=== PATIENT | female | born 1960 | race Caucasian/White ===

== ENCOUNTER → 2016-12-28 | Outpatient (CLI) | payer BC ==
[~2016-12-28] MED LIST: ASPCH81X PO; CHOL20005 PO; CYAN100020 PO; GLC500 PO; IRBE1TAB48 PO; LEVO50TA PO; PANT1TAB48 PO
[2016-12-28 10:52] LABS: RATIO 21.6 mcg/mg (0-30.0)
[2016-12-28 11:08] LABS: ESTIMATED AVERAGE GLUCOSE 134 mg/dl; HA1C FLAG Normal (Normal)
== END | disposition home or self-care (01) ==
LOC: C.LAB1850 09:32
PROVIDERS: ATTEND Family Medicine
DX: E78.5 Hyperlipidemia, unspecified (principal); E55.9 Vitamin D deficiency, unspecified; I10 Essential (primary) hypertension; E11.9 Type 2 diabetes mellitus without complications; E03.9 Hypothyroidism, unspecified

== ENCOUNTER → 2018-03-13 | Outpatient (CLI) | payer OTHER ==
[~2018-03-13] MED LIST changes: +PANT1TAB3 PO; -PANT1TAB48 PO
--- NOTE | 2018-03-13 13:38 | DIAGNOSTIC IMAGING REPORT ---
LEFT KNEE 2 VIEWS HISTORY: Left knee pain , SWELLING LEFT KNEE COMPARISON: None. FINDINGS: There is no fracture or dislocation. Soft tissues are unremarkable. No radiopaque foreign bodies. Mild cartilage space narrowing within the medial compartment of the knee consistent with degenerative change. IMPRESSION: No fractures. Mild osteoarthritis within the medial compartment. Electronically signed by: Ollie Pickett M.D. 03/13/2018 1:37 PM Dictated Date/Time: 03/13/2018 1:34 PM
== END | disposition home or self-care (01) ==
LOC: C.RAD1850 13:19
PROVIDERS: ATTEND Nurse Practitioner
DX: M25.562 Pain in left knee (principal); M25.462 Effusion, left knee

== ENCOUNTER 2022-05-01 06:57 | Inpatient (IN) ==
[~2022-05-01 06:57] MED LIST changes: -ASPCH81X PO; -CHOL20005 PO; -CYAN100020 PO; -GLC500 PO; -IRBE1TAB48 PO; -LEVO50TA PO; +LIDOCAINE 1% LOCAL 20 ML VIAL ONE; -PANT1TAB3 PO
--- NOTE | 2022-05-01 08:16 | History & Physical Bridge Note ---
Date of Service May 01, 2022 History & Physical Bridge Note I have examined the patient, reviewed the History & Physical and in the interval since the performance of the History & Physical I have noted the following changes of clinical significance: no changes noted
--- NOTE | 2022-05-01 08:16 | Pre Anesthesia Assessment ---
Date of Service May 01, 2022 Pre Sedation Assessment Vital Signs Temp Pulse Resp BP Pulse Ox 05/01/22 07:17 98.1 F 94 H 16 159/97 H 96 Cardiovascular RRR, no murmur, no edema Respiratory normal respiratory effort, lungs clear to auscultation Pre-Sedation Airway Assessment Smoking Status: Never smoker Hx Sleep Apnea: No Hx Difficult Intubation: No Short, Thick Neck: No Thyromental Distance: > or= 3.5 Finger Breadths Oral Cavity: + WNL Mallampati Class: III ASA: ASA3 NPO Status Date of Last Intake of Fluids: 04/30/22 Time of Last Intake of Fluids: 18:30 Date of Last Intake of Solid Food: 04/30/22 Time of Last Intake of Solid Foods: 18:30 Procedure Planning Contraindications for Sedation: none Current Medications Reviewed: Yes Notes The planned sedation has been discussed with the patient. Informed Consent was obtained. I have identified the patient, determined the appropriateness of sedation and have assessed the patient immediately prior to the procedure. All medicine(s) and interventions are by my order.
[2022-05-01] MEDS ORDERED: fentaNYL citrate 100 MCG/2 ML VIAL ONE (08:23)
[2022-05-01] MEDS ORDERED: NITROGLYCERIN/D5W 100MCG/ML 20ML SYR ONE (08:23)
[2022-05-01] MEDS ORDERED: HEPARIN (PORCINE) 1000 UNIT/ML 10 ML (CATH LAB USE ONLY) ONE (08:23)
[2022-05-01] MEDS ORDERED: MIDAZOLAM HCL 1 MG/ML 2ML VIAL ONE ×2 (08:23→09:33)
[2022-05-01] MEDS ORDERED: niCARdipine HCL INJ 2.5 MG/ML 10 ML AMP ONE (08:23)
[2022-05-01] MEDS ORDERED: FUROSEMIDE 40 MG/4 ML VIAL IV ONE ×2 (09:19→09:34)
[2022-05-01] MEDS ORDERED: NITROGLYCERIN 2% OINTMENT 30GM TUBE ONE ×2 (09:22→09:24)
[2022-05-01] MEDS ORDERED: hydrALAZINE HCL 20 MG/ML VIAL ONE (09:26)
--- NOTE | 2022-05-01 09:31 | Post Anesthesia Assessment ---
Date of Service May 01, 2022 Post Sedation Assessment Vital Signs Temp Pulse Resp BP Pulse Ox 05/01/22 09:15 132 H 30 H 188/131 H 87 L 05/01/22 07:17 98.1 F 94 H 16 159/97 H 96 Recovery Score Activity: Moves 4 extremities Respiration: Deep Breath/Cough Circulation: +/-20% PreAnes Value Consciousness: Fully Awake Oxygen Saturation: <90% w/ supp O2 Post Anesthesia Score: 9 Discharge Sedation Level of Care: Fast Track Phase II Post Sedation Plan On clinical assessment, the patient appears to have tolerated the sedation without complications. Patient is recovering as anticipated. Patient will continue to be monitored by nursing and may be discharged when sedation discharge criteria are met per below protocol. Upon Completions of procedure up to 15 minutes continue every 5 minute vital signs and the P.A.R. score; then discharge to a Phase I or Fast Track to Phase II per the following guidelines: * Discharge Patient to appropriate Phase II area if PAR is 8 or greater or return to pre- procedure baseline. The post - procedure orders will be as directed. * If PAR score is less than 8 or not return to pre-procedure baseline then patient will follow Phase I monitoring till PAR is reached for Phase II. The Phase I may be done in procedure room or may call to secure a Phase I area. * If naloxone or flumazenil are used for reversal, hold in Phase I for continued monitoring from when last reversal dose was given for a minimum of 60 minutes or longer pending the nurse and/or physician discretion of patient condition before discharge to Phase II. Please call the Sedation Physician to re-evaluate and complete post-note for discharge to Phase II area. Do NOT discharge from procedure sedation or Phase 1 until post- sedation evaluation note is complete by procedure /sedation MD Sedation Discharge Instructions to be given to the patient at discharge to home.
[2022-05-01] MEDS ORDERED: NITROGLYCERIN/D5W 100 MCG/ML BTL ONE (09:36)
[2022-05-01] MEDS ORDERED: RAPID SEQUENCE INDUCTION BAG ONE (09:38)
[2022-05-01] MEDS ORDERED: PROPOFOL IV EMULSION 10 MG/ML 100 ML VIAL (CATH LAB USE ONLY) ONE (09:46)
--- NOTE | 2022-05-01 10:23 | Cardiac Catheterization ---
[facility] Data: Cat And Dog Bather Cardiac Status Clinical evaluation leading to the procedure CAD Presenation: Sx unlikely to be ischemic Diagnostic Physicians Name: Ky Bermudez MD Closure Device Recommendations: Medical Therapy and/or Counseling and Valve Replacement Cardiac Cath Procedure Full Procedure Date May 01, 2022 Pre-Procedure Diagnosis Pre-Procedure Diagnosis: Valvular Disease AUC Score AUC Score: 7 Post-Procedure Diagnosis Post-Procedure Diagnosis: Mild CAD and Elevated Intracardiac Pressures Procedure(s) Performed Procedure(s) Performed: Coronary Angiography, Left Heart Cath, Right Heart Cath and Ultrasound Guided Vascular Access Business Info Consultant Ky Bermudez MD Plate Embosser(s) Showers Estimated Blood Loss Estimated Blood Loss: 15 Medication(s) Medication(s): Fentanyl, Heparin, Lidocaine 1%, Nicardipine, Nitroglycerin and Versed Summary of Findings Indication: Severe aortic stenosis Access: 6Fr right radial artery under ultrasound guidance, 6Fr right antecubital vein Catheters: 4Fr JR4, JL3.5, 6FR swan Findings: LM - Short, large caliber, no significant disease LAD - large caliber, no significant disease, wraps around apex. Circumflex - dominant, large caliber, no significant disease RCA - non-dominant, no significant disease RA 7 RV 81/10 PA 83/34 (56) PAWP 25 PaSat 60% AoSat 94% [place] CO/CI 5.5/2.9 Thermo CO/CI 5.8/3.1 TPG 21 PVR 3.7 BARNETT Arterial Closure: TR Band - On transfer to record label intern holding area patient became increasingly short of breath, hypoxic and hypertensive to 190s, sinus tachycardia to 140s. - Given IV lasix 80mg, topical/IV nitrates and hydralazine - Increasingly hypoxic down to 60s but quickly responded Bipap with 02 sats back to 90s. Summary: 1. Angiographically normal coronary arteries 2. Elevated left and right sided filling pressures 3. Severe pulmonary hypertension 4. Preserved cardiac output 5. Severe aortic stenosis by Echo 6. Post-procedure flash pulmonary edema, respiratory failure Recommendations: Admit for additional monitoring, diuresis and BP control. Expedite AVR evaluation Hemodynamics Rest Ao:: 162/103/131 Final Ao: 150/78/110 LV: -- Recommendations Recommendations: Medical Therapy and/or Counseling and Valve Replacement Specimens Specimens: None Radiation Exposure (mGy) 1122 Contrast (mls) 50 Fluids (cc crystalloids) Fluids (cc crystalloids): 50 Anesthesia moderate Procedural Complication(s) None Disposition ICU I attest to the content of the Intraoperative Record and any orders documented therein. Any exceptions are noted below. [facility] Card Cath Procedure Codes Cardiac Catheterization Procedure 1: Cardiovascular Cath Procedures: 85417 Coronaries & LHC (+/-LV) & RHC Therapeutic Services & Ancillary Proc Procedure 1: Cardiovascular Tx and Anc Procedures: 39380 Ultrasonic Guidance Vascular Access Moderate Sedation Procedure 1: Sedation/Anesthesia: 19264 Mod Sedation by the same physician;Init15 Min Child Age 5 & Up Procedure 2: Sedation/Anesthesia: 98474 Mod Sedation by the same physician; Ea [id number] Minutes PG Care Time/CCT Total # of Minutes Spent Total Time Spent with Patient: Total time spent is greater than 50% in coordination of care (as documented) at patient's floor/unit and/or counseling patient:
[2022-05-01] MEDS ORDERED: ONDANSETRON INJ 2 MG/ML 2 ML VIAL IV PRN (10:25)
[2022-05-01] MEDS ORDERED: ICU PROTOCOL FOR HYPERGLYCEMIA PRN (10:35)
[2022-05-01] MEDS ORDERED: STAT IV Infusion **Titration per Protocol STA (10:35)
[2022-05-01] MEDS ORDERED: NITROGLYCERIN/D5W 100MCG/ML 250 ML IV SCH (10:45)
--- NOTE | 2022-05-01 10:57 | Critical Care Consultation ---
Date of Consultation May 01, 2022 Assessment & Plan (1) Severe aortic stenosis: Impression: 62-year-old female with a history of severe aortic stenosis presenting to the ICU status post outpatient cardiac catheterization who experienced pulmonary edema status post procedure. Patient has been given nitro and Lasix and has been placed on BiPAP and is currently hemodynamically stable. Plan: Neuro: No acute problems at this time, avoid anti-anxiety meds in the setting of respiratory distress. Pulmonary: Acute hypoxemic respiratory failure secondary to acute decompensated heart failure with pulmonary hypertension. Patient experienced increase in transvascular pressure gradient after outpatient cardiac catheterization leading to flash pulmonary edema. Chest x-ray reveals bilateral hazy infiltrates consistent with pulmonary edema. Patient given nitroglycerin and 80 mg of Lasix in the School Laboratory Technician. Continue BiPAP. If patient oxygenation status worsens, consider intubation. Cardiovascular: Bicuspid aortic valve with severe aortic stenosis is likely the underlying morbidity that made her susceptible to pulmonary edema status post catheterization. During catheterization it was noted by Dr. Bermudez that patient needs to have a aortic valve replacement. As this procedure is not done at [facility], patient will likely need transfer to a tertiary facility such as [facility] or [facility] for aortic valve replacement. Will likely need beta-blockade after acute decompensation has improved/resolved Continue nitro for afterload reduction and Lasix to pull off edema. GI: No current problems at this time Renal: Diuresis as above. ICU electrolyte replacement protocol Endocrine: History of diabetes, only on metformin. ICU hyperglycemic protocol. ID: No ID problems at this time Diet: Heart healthy Disposition: ICU with likely transfer to tertiary facility CODE STATUS: Full code (2) Bicuspid aortic valve: (3) Acute hypoxemic respiratory failure: (4) Pulmonary hypertension: Supervising Physician Co-Signing Physician Notes Dr. Pack was resident physician during care of patient. I separately evaluated patient for nava portions of the history and the exam. I was present during the critical portion of medical decision making, and I discussed the case with the resident. I generally agree with the findings and plan. Acute cor pulmonale. Diuresis and improved with nitrates. I have personally spent 35 minutes of critical care time in the direct management of this patient. This is a life/limb threatening event. This includes time spent evaluating patient, direct bedside care, chart review, placing orders, interpretation of diagnostic studies, discussion with consultants, patient, and/or family members regarding treatment decisions, as well as other required patient management activities. This time is exclusive of all separately billable procedures, and teaching time and separate from and in addition to any other critical care service time. History of Present Illness Reason for Consultation: Hypoxia Attending Physician: Ky Bermudez MD History of Present Illness Patient is a 62-year-old female with past medical history of bicuspid aortic valve with severe aortic stenosis, obesity, peripheral neuropathy, hyperlipidemia, and Novoa's esophagus being brought to the intensive care unit for management in regards to hypoxia. Patient was having an outpatient bernard terization performed due to her history of shortness of breath secondary to aortic stenosis, and shortly after the catheterization patient began experiencing worsening shortness of breath and was found to have flash pulmonary edema. It was noted at that time the patient's pulse ox was measuring around 60%. Patient was placed on BiPAP and was given 80 mg of Lasix as well as nitro which improved her oxygen saturation to greater than 90%. No history of this happening previously. Otherwise has no history of pulmonary disorders. Of note the catheterization today did not reveal any significant stenosis in any of the major coronary vessels. Allergies Allergy/AdvReac Type Severity Reaction Status Date / Time prednisone Allergy Unknown VISUAL Verified 04/13/22 11:44 PROBLEMS Home Medications Medication Instructions Recorded Confirmed Type aspirin 81 mg tablet,delayed 81 mg PO DAILY 07/08/19 05/01/22 History release (Adult Low Dose Aspirin) cetirizine 10 mg tablet 10 mg PO DAILY PRN 07/08/19 05/01/22 History cyanocobalamin (vitamin B-12) 2,000 mcg PO DAILY tab 07/08/19 05/01/22 History 1,000 mcg tablet,extended release (Vitamin B-12 ER) omega-3 fatty acids 1,000 mg 1,000 mg PO DAILY 07/08/19 05/01/22 History capsule (Fish Oil Concentrate) compression socks, medium #1 ea 07/15/19 04/10/22 Rx cholecalciferol (vitamin D3) 50 4,000 unit PO DAILY cap 05/17/21 05/01/22 History mcg (2,000 unit) capsule (Vitamin D3) blood sugar diagnostic (Accu-Chek #100 ea 10/10/21 04/10/22 Rx Ramandeep Plus test strp) lancets (Accu-Chek Softclix #100 ea 10/10/21 04/10/22 Rx Lancets) pantoprazole 20 mg tablet,delayed 20 mg PO DAILY #90 tab 10/10/21 05/01/22 Rx release irbesartan 150 mg tablet 150 mg PO DAILY #90 tab 04/10/22 05/01/22 Rx metformin 500 mg tablet,extended 500 mg PO .COMPLEX #270 tab 04/10/22 05/01/22 Rx release 24 hr multivitamin (Daily Multi-Vitamin) 1 tab PO DAILY 04/13/22 05/01/22 History Patient History Medical History (Updated 05/01/22 @ 10:52 by Jaiden Pack DO) Chronic vulvitis DM (diabetes mellitus), type 2 Obese Rheumatic heart disease Surgical History H/O myringotomy H/O sinus surgery Family History Mother Myocardial infarction Denies family history of Ovarian cancer Prostate cancer Breast cancer Colorectal cancer Social History Smoking Status: Never smoker Second Hand Exposure: No; Hx Alcohol Use: No Hx Substance Use: No Preferred Language: Divehi Communication Ability: Effective [employer] Home Demonstrator Required: No Beliefs That Will Affect Care: None marital status: Current Living Situation: Spouse current occupational status: employed Feels Safe at Home: Yes Safety Concerns: Feels Safe At This Time caffeine: No Dental Care, Regularly: No Physical Activity Frequency: Does not Exercise Seatbelt Use: always Sunscreen Use: Yes Assistive Devices: None Review of Systems Review of Systems: All systems reviewed & are unremarkable except as noted in HPI & below Physical Exam Constitutional: well developed, well nourished and + acute distress Eyes: + anicteric sclerae Neck: normal visual inspection Respiratory: + respiratory distress Auscultation: + crackles (diffuse) Cardiovascular: Rate/Rhythm: regular rhythm Vessels: no JVD Extremities: no edema Gastrointestinal (Abdomen): normal bowel sounds, soft, nontender, no hepatosplenomegaly Musculoskeletal: Head/Neck/Chest: normocephalic and head atraumatic Skin: no rashes, warm and dry Neurologic: moves all extremities Psychiatric: Orientation: oriented x 3 Results & Data Results & Data ([facility]) Vital Signs (Past 12 Hours) Vital Signs Temp Pulse Resp BP Pulse Ox 05/01/22 10:30 113 H 24 136/77 98 05/01/22 10:15 116 H 24 156/91 H 97 05/01/22 10:00 117 H 24 143/101 H 98 05/01/22 09:45 118 H 26 H 162/91 H 95 05/01/22 09:30 146 H 34 H 182/149 H 77 L 05/01/22 09:15 132 H 30 H 188/131 H 87 L 05/01/22 07:17 36.7 C 94 H 16 159/97 H 96
--- NOTE | 2022-05-01 11:13 | XRay Report ---
XR chest 1V portable HISTORY: respiratory failure COMPARISON: Chest 04/12/2011. FINDINGS: No pneumothorax. Small bilateral pleural effusions. The cardiac silhouette is mildly enlarg ed. Hazy bilateral airspace opacities most pronounced within the left upper lobe. There is associated interstitial/vascular thickening. Hemivertebra with upper thoracic spine dextroscoliosis remains unc hanged. IMPRESSION: Interval development of hazy bilateral airspace opacities with small bilateral pleural effusions and mild cardiomegaly. This favors pulmonary edema. A viral pneumonia could also have a similar appearanc e. ACT 112: Negative or not required by law. Electronically signed by: Ollie Pickett M.D. 05/01/2022 11:11 AM
--- NOTE | 2022-05-01 11:37 | History & Physical Report ---
Date of Service May 01, 2022 Assessment & Plan (1) Severe aortic stenosis: Plan: 2. Acute heart failure, flash pulmonary edema 3. Hypertension 4. Type 2 diabetes 5. Severe pulmonary hypertension 6. Anemia Patient developed acute respiratory failure secondary to flash pulmonary edema following diagnostic cardiac catheterization today. Patient has been off her home antihypertensives but only received 50 mL of fluid and additional 50 of contrast during the procedure. Acute decompensation suggestive of pretty limited reserve with her severe aortic stenosis, pulmonary hypertension. Will need expedited AVR. Plan going forward: admit to ICU for close monitoring, BiPAP continue nitro infusion, resume home ARB Additional IV diuresis Discussion regarding timing of AVR pending clinical course. Admission and Anticipated Discharge Date Admission Date: May 01, 2022 History of Present Illness Primary Care Provider: Arias Khalil DO Mrs. Nazario is a very pleasant 62-year-old woman with a history of hypertension, hyperlipidemia, diabetes and bicuspid arctic valve with severe aortic stenosis. Admitted today after respiratory failure after diagnostic cardiac catheterization. Patient recently seen in the outpatient setting for progressive exertional dyspnea over the last 3 to 4 weeks. Repeat echocardiogram showed now severe aortic stenosis. Further evaluation for AVR for symptomatic severe recommended. Today underwent cardiac cath which showed angiographically normal coronary arteries. Noted to have elevated left (wedge pressure of 25) and right-sided filling pressures with severe pulmonary hypertension. Post procedure upon reaching Ux Consultant holding area increasingly short of breath, hypoxic, tachycardic and hypertensive. Received 80 of IV Lasix, topical/IV nitrates, hydralazine. Still progressively hypoxic and preparations being made for intubation. Fortunately patient responded to diuretics, BiPAP quickly with O2 sats back in the 90s and less respiratory distress. Allergies Allergy/AdvReac Type Severity Reaction Status Date / Time prednisone Allergy Unknown VISUAL Verified 04/13/22 11:44 PROBLEMS Home Medications Medication Instructions Recorded Confirmed Type aspirin 81 mg tablet,delayed 81 mg PO DAILY 07/08/19 05/01/22 History release (Adult Low Dose Aspirin) cetirizine 10 mg tablet 10 mg PO DAILY PRN 07/08/19 05/01/22 History cyanocobalamin (vitamin B-12) 2,000 mcg PO DAILY tab 07/08/19 05/01/22 History 1,000 mcg tablet,extended release (Vitamin B-12 ER) omega-3 fatty acids 1,000 mg 1,000 mg PO DAILY 07/08/19 05/01/22 History capsule (Fish Oil Concentrate) compression socks, medium #1 ea 07/15/19 04/10/22 Rx cholecalciferol (vitamin D3) 50 4,000 unit PO DAILY cap 05/17/21 05/01/22 History mcg (2,000 unit) capsule (Vitamin D3) blood sugar diagnostic (Accu-Chek #100 ea 10/10/21 04/10/22 Rx Ramandeep Plus test strp) lancets (Accu-Chek Softclix #100 ea 10/10/21 04/10/22 Rx Lancets) pantoprazole 20 mg tablet,delayed 20 mg PO DAILY #90 tab 10/10/21 05/01/22 Rx release irbesartan 150 mg tablet 150 mg PO DAILY #90 tab 04/10/22 05/01/22 Rx metformin 500 mg tablet,extended 500 mg PO .COMPLEX #270 tab 04/10/22 05/01/22 Rx release 24 hr multivitamin (Daily Multi-Vitamin) 1 tab PO DAILY 04/13/22 05/01/22 History Past Med/Surg History Medical History (Updated 05/01/22 @ 10:52 by Jaiden Pack DO) Chronic vulvitis DM (diabetes mellitus), type 2 Obese Rheumatic heart disease Surgical History H/O myringotomy H/O sinus surgery Family History Mother Myocardial infarction Denies family history of Ovarian cancer Prostate cancer Breast cancer Colorectal cancer Social History Smoking Status: Never smoker Second Hand Exposure: No; Hx Alcohol Use: No Hx Substance Use: No Preferred Language: Kyrgyz Communication Ability: Effective Talent Solutions Manager Required: No Beliefs That Will Affect Care: None marital status: Current Living Situation: Spouse current occupational status: employed Feels Safe at Home: Yes Safety Concerns: Feels Safe At This Time caffeine: No Dental Care, Regularly: No Physical Activity Frequency: Does not Exercise Seatbelt Use: always Sunscreen Use: Yes Assistive Devices: None Review of Systems Review of Systems: All systems reviewed & are unremarkable except as noted in HPI & below Physical Exam Physical Exam: General: Uncomfortable, BiPAP in place Eyes: Sclerae anicteric Lungs: Scattered wheezing, much improved following diuresis Cardiac: Regular rate and rhythm, 3/6 systolic ejection murmur heard best at the right upper sternal border Vascular: 2+ radial (left greater than right) at baseline. TR band in place. Lower extremities with trace edema bilaterally. Telangiectasias and reticular veins on distal lower extremities. Varicosities behind the knees. Abdomen: Soft, nontender Skin: No rashes or lesions. Neuro: Nonfocal Psych: Alert orient x3, normal affect and mood Results & Data Results & Data ([facility]) Vital Signs (Past 12 Hours) Vital Signs Temp Pulse Pulse Resp BP Pulse Ox 05/01/22 10:30 113 H 24 136/77 98 05/01/22 10:15 116 H 24 156/91 H 97 05/01/22 10:00 117 H 24 143/101 H 98 05/01/22 09:50 111 H 20 97 05/01/22 09:45 118 H 26 H 162/91 H 95 05/01/22 09:30 146 H 34 H 182/149 H 77 L 05/01/22 09:15 132 H 30 H 188/131 H 87 L 05/01/22 07:17 98.1 F 94 H 16 159/97 H 96 Code Status & VTE Plan VTE Prophylaxis Plan VTE Prophylaxis will be ordered: Yes PG Care Time/CCT Total # of Minutes Spent Total Time Spent with Patient: Total time spent is greater than 50% in coordination of care (as documented) at patient's floor/unit and/or counseling patient: Coding Level of Care Code 91298 Initial Inpt Care Lvl 3 Diagnoses Severe aortic stenosis I35.0
[2022-05-01 12:09] LABS: Basophils # (auto) 0.08 K/uL (0-0.2); Basophils % (auto) 0.5 %; Eosinophils # (auto) 0.05 K/uL (0-0.50); Eosinophils % (auto) 0.3 %; Hematocrit (blood only) 40.6 % (34.1-44.9); Hemoglobin 13.1 g/dl (12.0-16.0); Immature Granulocytes # (auto) 0.07 K/uL (0.00-0.02); Immature Granulocytes % (auto) 0.4 %; Lymphocytes # (auto) 1.38 K/uL (1.2-3.4); Lymphocytes % (auto) 8.4 %; Mean Corpuscular Hemoglobin 28.2 pg (25.0-34.0); Mean Corpuscular Hgb Conc 32.3 g/dL (32.0-36.0); Mean Corpuscular Volume 87.3 fL (80.0-100.0); Mean Platelet Volume 10.4 fL (9.4-12.3); Monocytes # (auto) 0.55 K/uL (0.24-0.82); Monocytes % (auto) 3.3 %; Neutrophils # (auto) 14.31 K/uL (1.4-6.5); Neutrophils % (auto) 87.1 %; Platelet Count 368 K/uL (130-400); RDW Coefficient of Variation 14.8 % (11.5-14.5); RDW Standard Deviation 46.7 fL (36.4-46.3); Red Blood Count 4.65 M/uL (3.93-5.22); White Blood Count 16.44 K/ul (4.8-10.8)
[2022-05-01 12:16] LABS: Albumin Globulin Ratio 1.2 (0.9-2); Albumin Level 4.4 gm/dl (3.4-5.0); BUN Creatinine Ratio 21.5 (10-20); Bilirubin,Total 0.7 mg/dl (0.2-1.0); Calcium 9.2 mg/dl (8.5-10.1); Creatinine Clr Calc Pharmacy 75.9 ml/min; Est GFR (Non-African American) 80.2 ml/min; Globulin 3.7 gm/dl (2.5-4.0); Potassium 3.9 mmol/L (3.5-5.1); Total Protein 8.1 gm/dl (6.0-8.3)
--- NOTE | 2022-05-01 14:44 | Electrocardiogram Report ---
Test Reason : Blood Pressure : / mmHG Vent. Rate : 099 BPM Atrial Rate : 099 BPM P-R Int : 150 ms QRS Dur : 104 ms QT Int : 352 ms P-R-T Axes : 048 008 206 degrees QTc Int : 451 ms Normal sinus rhythm Left ventricular hypertrophy with repolarization abnormality Abnormal ECG No previous ECGs available Confirmed by Ky Abad ([id number]) on 05/01/2022 2:44:02 PM Referred By: Nayan Bermudez Confirmed By:Kendall Abad
[2022-05-01 16:17] LABS: iSTAT Arterial Blood Gas HCO3 25 meg/L (19-24); iSTAT Arterial Blood Gas pCO2 47 mmHg (35-46); iSTAT Arterial Blood Gas pH 7.34 (7.35-7.45); iSTAT Arterial Blood Gas pO2 77 mmHg (80-95); iSTAT Carbon Dioxide 27 mmol/L (24-31)
--- NOTE | 2022-05-01 17:19 | Communication Note ---
Date of Service: May 01, 2022 Seen this afternoon. Appears comfortable, conversant on nasal cannula. UOP - 1900 Discussed case with [facility] (Dr. Delgado, Dr. Mauricio-Structural cardiology). [facility] schedule does not allow for TAVR this week. Plan for now is to continue to diurese, monitor overnight. If back to baseline tomorrow [facility] valve clinic to facilitate AVR possibly next week. If persistent distress tomorrow than would transfer down to [place] to await procedure. Appreciate ICU team care
[2022-05-02] MEDS ORDERED: ACETAMINOPHEN 500 MG TAB PO PRN (02:57)
[2022-05-02 05:08] LABS: Basophils # (auto) 0.05 K/uL (0-0.2); Basophils % (auto) 0.5 %; Eosinophils # (auto) 0.04 K/uL (0-0.50); Eosinophils % (auto) 0.4 %; Hematocrit (blood only) 33.4 % (34.1-44.9); Hemoglobin 10.8 g/dl (12.0-16.0); Immature Granulocytes # (auto) 0.02 K/uL (0.00-0.02); Immature Granulocytes % (auto) 0.2 %; Lymphocytes # (auto) 2.25 K/uL (1.2-3.4); Lymphocytes % (auto) 23.9 %; Mean Corpuscular Hemoglobin 28.3 pg (25.0-34.0); Mean Corpuscular Hgb Conc 32.3 g/dL (32.0-36.0); Mean Corpuscular Volume 87.4 fL (80.0-100.0); Mean Platelet Volume 9.7 fL (9.4-12.3); Monocytes # (auto) 0.58 K/uL (0.24-0.82); Monocytes % (auto) 6.2 %; Neutrophils # (auto) 6.46 K/uL (1.4-6.5); Neutrophils % (auto) 68.8 %; Platelet Count 219 K/uL (130-400); RDW Coefficient of Variation 14.8 % (11.5-14.5); RDW Standard Deviation 46.6 fL (36.4-46.3); Red Blood Count 3.82 M/uL (3.93-5.22)
[2022-05-02 05:30] LABS: BUN Creatinine Ratio 20.2 (10-20); Calcium 8.7 mg/dl (8.5-10.1); Creatinine Clr Calc Pharmacy 71.3 ml/min; Est GFR (African American) 86.3 ml/min; Est GFR (Non-African American) 74.5 ml/min; Potassium 3.5 mmol/L (3.5-5.1)
--- NOTE | 2022-05-02 08:07 | Critical Care Progress Note ---
Date of Service May 02, 2022 Assessment & Plan (1) Severe aortic stenosis: Plan: Impression: 62-year-old female with a history of severe aortic stenosis presenting to the ICU status post outpatient cardiac catheterization who experienced pulmonary edema status post procedure. Patient has been given nitro and Lasix and has been placed on BiPAP and is currently weaned down to 1 L nasal cannula and is hemodynamically stable. Plan: Neuro: No acute problems at this time, avoid anti-anxiety meds in the setting of respiratory distress. Pulmonary: Acute hypoxemic respiratory failure secondary to acute decompensated heart failure with pulmonary hypertension. Patient much improved from yesterday, will attempt de-escalation of oxygen to room air as tolerated. Chest x-ray this morning shows improvement of venous congestion compared to yesterday. Patient appears euvolemic and with patients who experience flash pulmonary edema typically are not fluid overloaded, so will defer any additional diuresis to primary, Dr. Bermudez. Cardiovascular: Bicuspid aortic valve with severe aortic stenosis is likely the underlying morbidity that made her susceptible to pulmonary edema status post catheterization. During catheterization it was noted by Dr. Bermudez that patient needs to have a aortic valve replacement. Patient has improved significantly when compared to yesterday, so patient can likely be discharged with outpatient follow-up for discussion related to aortic valve replacement. Will defer decision making with primary, Dr. Bermudez. Patient may benefit from beta-blockade to prevent future episodes of pulmonary edema. GI: No current problems at this time Renal: Diuresis as above. ICU electrolyte replacement protocol Endocrine: History of diabetes, only on metformin. ICU hyperglycemic protocol. ID: No ID problems at this time Diet: Heart healthy Disposition: Can be downgraded from ICU, will discuss case with Dr. Bermudez CODE STATUS: Full code (2) Bicuspid aortic valve: (3) Acute hypoxemic respiratory failure: (4) Pulmonary hypertension: Admission and Anticipated Discharge Date Admission Date: May 01, 2022 Supervising Physician Co-Signing Physician Notes Dr. Pack was resident physician during care of patient. I separately evaluated patient for nava portions of the history and the exam. I was present during the critical portion of medical decision making, and I discussed the case with the resident. I generally agree with the findings and plan. Feels completely normal. Desires to go home today. Likely discharge home by cardiology. No evidence of distress Subjective Patient seen at bedside this morning. No acute events reported overnight. Patient doing significantly better than yesterday. Appears comfortable. Patient is thankful for the care that she is received since being admitted to the hospital. Reports shortness of breath is almost entirely gone. Currently only on 1 L nasal cannula and saturating well. Patient would like to get up and walk around if able. Otherwise denies chest pain, headache, or fever/chills. No other complaints at this time Review of Systems Review of Systems: All systems reviewed & are unremarkable except as noted in HPI & below Physical Exam Constitutional: well developed, well nourished and + acute distress Eyes: + anicteric sclerae Neck: normal visual inspection Respiratory: normal respiratory effort Auscultation: + crackles Cardiovascular: Rate/Rhythm: regular rhythm Vessels: no JVD Extremities: no edema Gastrointestinal (Abdomen): normal bowel sounds, soft, nontender, no hepatosplenomegaly Musculoskeletal: Head/Neck/Chest: normocephalic and head atraumatic Skin: no rashes, warm and dry Neurologic: moves all extremities Psychiatric: Orientation: oriented x 3 Results & Data Results & Data ([facility]) Vital Signs (Past 12 Hours) Vital Signs Temp Pulse Resp BP Pulse Ox 05/02/22 06:04 88 21 96/61 L 95 05/02/22 05:00 36.9 C 75 23 98/62 L 94 05/02/22 04:26 87 21 108/70 97 05/02/22 04:02 72 21 90/59 L 93 05/02/22 03:00 37 C 78 23 100/68 94 05/02/22 02:00 85 18 109/65 93 05/02/22 01:00 80 21 115/69 95 05/02/22 00:00 37 C 76 25 H 113/64 97 05/01/22 23:00 37 C 76 24 106/67 95 05/01/22 22:00 80 25 H 101/66 93 05/01/22 21:00 87 26 H 112/66 96
--- NOTE | 2022-05-02 08:50 | XRay Report ---
XR chest 1V portable CLINICAL HISTORY: f/u TECHNIQUE: Single frontal radiograph of the chest was obtained. Comparison: Comparison is made to chest radiograph 05/01/2022 FINDINGS: No lines and tubes are seen. Cardiomegaly is noted. The lungs are clear. No evidence of pleural effus ion or pneumothorax. IMPRESSION: No acute chest disease. Cardiomegaly is noted. ACT 112: Negative or not required by law. Electronically signed by: Pancho John M.D. 05/02/2022 8:49 AM
[2022-05-02] MEDS ORDERED: ASPIRIN 81 MG ECTAB PO SCH (09:00)
[2022-05-02] MEDS ORDERED: IRBESARTAN 150 MG TAB PO SCH (09:00)
[2022-05-02] MEDS ORDERED: PANTOprazole 40 MG TAB PO SCH (09:00)
[2022-05-02 09:28] LABS: Magnesium 1.6 mg/dl (1.7-2.4); Phosphorus 3.9 mg/dl (2.5-4.9)
--- NOTE | 2022-05-02 09:29 | Billing Data ---
Date of Service May 01, 2022 Coding Level of Care Code Critical Care 1st - mins
--- NOTE | 2022-05-02 09:53 | Billing Data ---
Date of Service May 02, 2022 Coding Level of Care Code 94081 Subseq Obs Care Lvl 1
[2022-05-02 15:04] LABS: iSTAT Arterial Blood Gas HCO3 25 meg/L (19-24); iSTAT Arterial Blood Gas pCO2 50 mmHg (35-46); iSTAT Arterial Blood Gas pH 7.31 (7.35-7.45); iSTAT Arterial Blood Gas pO2 35 mmHg (80-95); iSTAT Carbon Dioxide 27 mmol/L (24-31)
--- NOTE | 2022-05-02 17:15 | Discharge Summary ---
Date of Service May 02, 2022 Admission HPI Per Admitting Provider Mrs. Nazario is a very pleasant 62-year-old woman with a history of hypertension, hyperlipidemia, diabetes and bicuspid arctic valve with severe aortic stenosis. Admitted today after respiratory failure after diagnostic cardiac catheterization. Patient recently seen in the outpatient setting for progressive exertional dyspnea over the last 3 to 4 weeks. Repeat echocardiogram showed now severe aortic stenosis. Further evaluation for AVR for symptomatic severe recommended. Today underwent cardiac cath which showed angiographically normal coronary arteries. Noted to have elevated left (wedge pressure of 25) and right-sided filling pressures with severe pulmonary hypertension (PASP 80mmHg). Post procedure upon reaching [place] holding area increasingly short of breath, hypoxic, tachycardic and hypertensive. Received 80 of IV Lasix, topical/IV nitrates, hydralazine. Still progressively hypoxic and preparations being made for intubation. Fortunately patient responded to diuretics, BiPAP quickly with O2 sats back in the 90s and less respiratory distress. Specialty Data Specialty Data Cardiac cath 05/01/2022: RA 7 RV 81/10 PA 83/34 (56) PAWP 25 PaSat 60% AoSat 94% [place] CO/CI 5.5/2.9 Thermo CO/CI 5.8/3.1 TPG 21 PVR 3.7 BARNETT Summary: 1. Angiographically normal coronary arteries 2. Elevated left and right sided filling pressures 3. Severe pulmonary hypertension 4. Preserved cardiac output 5. Severe aortic stenosis by Echo 6. Post-procedure flash pulmonary edema, respiratory failure Discharge Data Consultations 05/01/22 10:30 Consult Certified Income Tax Preparer Routine Procedures Performed Operation Date: 05/01/22 08:00 Actual Procedures p Cath, Right Heart with Cors - Nayan Bermudez MD s Ultrasound Vascular Access - Nayan Bermudez MD s Cineradiography w/Routine Exam - Nayan Bermudez MD Hospital Course (1) Severe aortic stenosis: 2. Acute heart failure, flash pulmonary edema 3. Hypertension 4. Type 2 diabetes 5. Severe pulmonary hypertension 6. Anemia After initial IV Lasix in [place] holding area diuresed well, negative more than 2 L. Blood pressure improved and nitroglycerin discontinued. By afternoon of hospital day 1 weaned from BiPAP back to nasal cannula. No arrhythmias on telemetry overnight. On hospital day 2 was feeling back at baseline, breathing comfortably on room air and able to walk the halls without symptoms. Repeat labs stable. Follow-up chest x-ray improved. Discussions were had with [facility] regarding expedited valve replacement in the setting of new acute heart failure with minimal procedural fluid. Transfer for inpatient management was considered but ultimately as patient improved rapidly decision to pursue outpatient AVR hopefully sometime next week. Discharge to home on prior irbesartan and new Lasix 20 mg daily. We will repeat BMP later this week. Follow-up with [facility]/cardiac surgery being arranged. Discharge Instructions Home Medications aspirin 81 mg tablet,delayed release (Adult Low Dose Aspirin) 81 mg PO DAILY 07/08/19 [History Confirmed 05/01/22] cetirizine 10 mg tablet 10 mg PO DAILY PRN 07/08/19 [History Confirmed 05/01/22] cyanocobalamin (vitamin B-12) 1,000 mcg tablet,extended release (Vitamin B-12 ER) 2,000 mcg PO DAILY tab 07/08/19 [History Confirmed 05/01/22] omega-3 fatty acids 1,000 mg capsule (Fish Oil Concentrate) 1,000 mg PO DAILY 07/08/19 [History Confirmed 05/01/22] compression socks, medium #1 ea 07/15/19 [Rx Confirmed 04/10/22] cholecalciferol (vitamin D3) 50 mcg (2,000 unit) capsule (Vitamin D3) 4,000 unit PO DAILY cap 05/17/21 [History Confirmed 05/01/22] blood sugar diagnostic (Accu-Chek Ramandeep Plus test strp) #100 ea 10/10/21 [Rx Confirmed 04/10/22] lancets (Accu-Chek Softclix Lancets) #100 ea 10/10/21 [Rx Confirmed 04/10/22] pantoprazole 20 mg tablet,delayed release 20 mg PO DAILY #90 tab 10/10/21 [Rx Confirmed 05/01/22] irbesartan 150 mg tablet 150 mg PO DAILY #90 tab 04/10/22 [Rx Confirmed 05/01/22] metformin 500 mg tablet,extended release 24 hr 500 mg PO .COMPLEX #270 tab 04/10/22 [Rx Confirmed 05/01/22] multivitamin (Daily Multi-Vitamin) 1 tab PO DAILY 04/13/22 [History Confirmed 05/01/22] furosemide 20 mg tablet 20 mg PO DAILY #30 tab 05/02/22 [Rx] Coding Level of Care Code D/C DAY MANAGEMENT <30 MINS Diagnoses Severe aortic stenosis I35.0
--- NOTE | 2022-07-20 07:21 | Coding Query ---
CODING QUERY To promote full compliance with coding requirements relating to patient care, provider participation is requested in all cases of communication coordinator uncertainty. Please assist us with the question(s) below: Coding Question(s): Patient was documented as having New Acute Heart Failure. Please specify and document the type and the cause of the Heart Failure. Type: Combined Systolic and Diastolic ____x___Diastolic Systolic Other, please specify Cause: due to Post Procedural, Acute Respiratory Failure due to Cardiac Cath procedure Other, please specify ____x___Unable to determine Physician's Response(s): Thank you Nicky Yun CCS Principal Diagnosis: "that condition established after study, to be chiefly responsible for occasioning the admission of the patient to the hospital for care." Co-Existing Principal Diagnosis: "when two or more diagnoses equally meet the criteria for principal diagnosis as determined by the circumstances of admission, diagnostic work up, and/or therapy provided, and the Alphabetic Index, Tabular List, or another coding guideline does not provide sequencing direction, any one of the diagnoses may be sequenced first." "When the physician has documented what appears to be a current diagnosis in the body of the record, but has not included the diagnosis in the final diagnostic statement, the physician should be asked whether the diagnosis should be added." (Source Coding [facility] 2 QTR90. p3-4) QING
== END 2022-05-02 13:05 | disposition home or self-care (01) | DRG 189 ==
LOC: CC 06:57 → 1E 10:30